=== PATIENT | female | born 1985 | race Caucasian/White ===

== ENCOUNTER 2016-05-03 12:48 | Emergency (ER) ==
--- NOTE | 2016-05-03 13:19 | PROVIDER DOCUMENTATION ---
HPI-General Adult <Leslie Onofre - Last Filed: 05/03/16 14:52> - General Source: patient - History of Present Illness -Gen Adult Nature of Presenting Problems: REPORTS TO ER WITH CC OF KNOT ON LEFT SIDE OF NECK X 1 DAY WITH SWELLING AND PAIN. NO SICK CONTACTS. DENIES F,N,V,C. REPORTS RADIATES TO LEFT EAR Location of Pain/Injury: reports: neck Quality of Pain: reports: aching Severity: reports: severe Onset/Duration: reports: 24 hours ago Timing: reports: still present Similar Symptoms Previously?: No Recently seen or treated by another doctor?: No <Blaine Zamora - Last Filed: 05/03/16 16:50> - General Chief Complaint: General Adult Stated Complaint: KNOT ON NECK Time Seen by Provider: 05/03/16 13:03 Allergies/Adverse Reactions: Patient Allergies Allergy/AdvReac Type Severity Reaction Status Date / Time lisinopril Allergy RASH Verified 05/03/16 13:03 Penicillins Allergy RASH Verified 05/03/16 13:03 Home Medications: Metformin [Glucophage] 500 mg PO DAILY 02/13/14 Meloxicam [Mobic] 15 mg PO DAILY 05/03/16 Review of Systems - Adult - REVIEW OF SYSTEMS - ADULT Constitutional: denies: chills, fever, fatique Eyes: reports: no symptoms reported Ears, Nose, Mouth & Throat: reports: ear pain. denies: ear discharge, sinus problem, throat pain Cardiovascular: reports: no symptoms reported Respiratory: reports: no symptoms reported Gastrointestinal: reports: no symptoms reported Genitourinary: reports: no symptoms reported Musculoskeletal: reports: no symptoms reported Integumentary: reports: no symptoms reported Neurological: reports: no symptoms reported Psychiatric: reports: no symptoms reported Endocrine: reports: see HPI Hematologic/Lymphatic: reports: no symptoms reported Allergic/Immunologic: reports: no symptoms reported All Other Systems: Reviewed and Negative <Blaine Zamora - Last Filed: 05/03/16 16:50> Past History - Adult - PAST MEDICAL HISTORY-ADULT Review of Records: reports: Nursing Assessment Review Major Childhood Illnesses: reports: denies history Cardiovascular: reports: denies history, HTN Respiratory: reports: denies history Gastrointestinal: reports: denies history Obstetrical/Gynecological: reports: denies history Genitourinary: reports: denies history Musculoskeletal: reports: denies history Neurological: reports: denies history Endocrine/Immune: reports: Diabetes Other Conditions: reports: denies history - PRIOR SURGERIES/PROCEDURES Surgical/Procedure History: reports: other (Cyst removed from breast) - IMMUNIZATION STATUS Childhood Immunizations: See Nurse Assessment Flu Vaccine: See Nurse Assessment - FAMILY HISTORY Family History: reviewed, not pertinent - SOCIAL HISTORY Smoking: cigar, less than 1 pack/day Provider spent 3-5 mins advising pt. on dangers of tobacco.: Discussed manners to quit use, and f/u contacts for add'l counseling. Substance Use: none/never <Blaine Zamora - Last Filed: 05/03/16 16:50> Physical Exam-General - PHYSICAL EXAM-ADULT Initial Vital Signs Reviewed: Yes - CONSTITUTIONAL General Appearance: appears well, alert, no apparent distress - EYES Eyes: PERRL/EOMI, pink conjunctivae - HEAD, EARS, NOSE, MOUTH & THROAT HENMT: normocephalic/atraumatic, moist mucous membranes, normal ENT inspection - NECK Neck: non-tender, full range of motion, supple, lymphadenopathy (PREAURICLE 2CM PAINFUL TO PALPATE) - RESPIRATORY Respiratory: chest non-tender, lungs clear, normal breath sounds - CARDIOVASCULAR Cardiovascular: normal peripheral pulses, regular rate, rhythm, no edema - GASTROINTESTINAL (ABDOMEN) Abdominal Exam: normal bowel sounds, non tender, soft - LYMPHATIC Lymphatic: no adenopathy - MUSCULOSKELETAL Back Exam: normal inspection, no CVA tenderness, no vertebral tenderness Extremity: normal range of motion, non-tender, normal gait - SKIN Integumentary: normal color, normal turgor, warm/dry - NEUROLOGIC Neurologic: grossly normal, no motor/sensory deficits - PSYCHIATRIC Psych/Mental Status: normal mood/affect, normal thought content, normal thought process, oriented x 3 <Blaine Zamora - Last Filed: 05/03/16 16:50> Progress - PLAN OF CARE/RESULTS Progress/Plan/Lab Results: Orders Category Date Time Status CBC WITH DIFF [HEME] Stat Lab 05/03/16 13:[address] Stat Lab 05/03/16 13:18 Uncollected Vital Signs - 24 hr 05/03/16 13:00 Temperature 98.2 F Pulse Rate 69 Respiratory 18 Rate Blood Pressure 152/89 O2 Sat by Pulse 100 Oximetry <Blaine Zamora - Last Filed: 05/03/16 16:50> Departure - Departure Time of Disposition Order: 14:52 <Leslie Onofre - Last Filed: 05/03/16 14:52> - Departure Time of Disposition Order: 16:50 Certified Medical Emergency: Emergent <Blaine Zamora - Last Filed: 05/03/16 16:50> - Departure DIAGNOSIS: Lymphadenopathy Disposition: HOME 01 Condition: Good Additional Instructions: ED Follow Up Instructions: You have been treated by a care provider in the Emergency Department. These instructions are being provided to you so you can have an understanding of how to care for yourself upon discharge. Upon discharge from the Emergency Department, you are responsible for making arrangements for follow-up care by a physician of your choice. Take all prescribed medications as directed. Return to the Emergency Department immediately for any new or worsening symptoms. You may call the Physician Referral phone number at [phone] to obtain a list of Physicians who are taking new patients. Prescriptions: Sulfamethoxazole/Trimethoprim [Bactrim Ds Tablet] 1 each PO BID #20 tablet Referrals: Vivienne Dyson MD [Primary Care Provider] - Forms: Return to School/Parent Work Instructions: Lymphadenopathy, Sulfamethoxazole; Trimethoprim, SMX-TMP tablets Attestation - Scribe Verification/Attestation Scribe:: Blaine Zamora Acting as Scribe for:: Leslie Onofre Scribe documention review:: This chart was documented by a scribe and accurately reflects the service the provider performed and the decisions made by the provider. <Blaine Zamora - Last Filed: 05/03/16 16:50> Physician Attestation
[2016-05-03 13:34] LABS: MANUAL DIFF NEEDED? NO
[2016-05-03 13:35] LABS: BASO% 0.5 % (0.0-0.8); EOS# 0.07 X1000 (0.0-0.7); EOS% 1.7 % (0.0-10.0); HEMATOCRIT 34.2 % (37.0-47.0); HEMOGLOBIN 11.2 g/dL (12.0-16.0); LYMPH# 1.87 X1000 (1.2-3.4); LYMPH% 46.2 % (20.5-51.1); MCH 26.1 PG (27-31); MCHC 32.7 g/dL (33-37); MCV 79.7 FL (81-99); MONO# 0.44 X1000 (0.11-0.59); MONO% 10.9 % (1.7-9.3); MPV 9.1 FL (7.4-10.4); NEUT% 40.7 % (42.2-75.2); PLT 263 X1000 (130-400); RBC 4.29 XMIL (4.2-5.4)
[2016-05-03 14:42] VITALS: BP 144/85
== END 2016-05-03 15:07 | disposition home or self-care (01) ==
LOC: P.ED 12:48
DX: R59.0 Localized enlarged lymph nodes (principal); R22.1 Localized swelling, mass and lump, neck; M54.2 Cervicalgia; H92.09 Otalgia, unspecified ear; I10 Essential (primary) hypertension; E11.9 Type 2 diabetes mellitus without complications; F17.290 Nicotine dependence, other tobacco product, uncomplicated; Z79.1 Long term (current) use of non-steroidal anti-inflammatories (NSAID); Z79.899 Other long term (current) drug therapy; Z71.6 Tobacco abuse counseling
CPT/HCPCS: 85025; 99283